=== PATIENT | female | born 1970 | race African-American/Black ===

== ENCOUNTER 2018-02-09 06:26 | Inpatient (IN) | payer OTHER ==
[2018-02-09] MEDS ORDERED: LIDOCAINE 2% (SDV) 5 ML INJ (07:00)
[2018-02-09] MEDS ORDERED: CEFAZOLIN 2 GM/50 ML (PMX) 50 ML IVPB (07:00)
[2018-02-09] MEDS: SOD CHLORIDE 0.9% 1,000 ML IV (07:56)
[2018-02-09] MEDS ORDERED: THROMBIN 5000 UNIT VIAL (09:05)
[2018-02-09] MEDS ORDERED: PROPOFOL 20 ML (09:23)
[2018-02-09] MEDS ORDERED: SUCCINYLCHOLINE CHLORIDE 100 MG/5 ML SYG IV (09:23)
[2018-02-09] MEDS ORDERED: MIDAZOLAM 1 MG/ML 2 ML INJ (09:23)
[2018-02-09] MEDS ORDERED: DEXAMETHASONE 4 MG/ML 1 ML INJ (09:31)
[2018-02-09] MEDS ORDERED: CEFAZOLIN 1 GM INJ (09:31)
[2018-02-09] MEDS ORDERED: FAMOTIDINE 20 MG INJ (09:31)
[2018-02-09] MEDS ORDERED: ONDANSETRON 4 MG INJ (09:31)
[2018-02-09] MEDS ORDERED: FENTAnyl 50 MCG/ML VIAL (10:13)
[2018-02-09] MEDS ORDERED: HYDROmorphONE 1 MG/5 ML IV SYRINGE IV ×3 (11:20→11:47)
[2018-02-09] MEDS: HYDROmorphONE 1 MG/5 ML IV SYRINGE IV ×5 (11:22→12:27)
[2018-02-09] MEDS ORDERED: ONDANSETRON 4 MG INJ IV (11:30)
[2018-02-09] MEDS ORDERED: hydrALAzine 20 MG INJ IV (11:30)
[2018-02-09] MEDS ORDERED: LABETALOL HCL 20MG INJ IV (11:30)
[2018-02-09] MEDS ORDERED: DIPHENHYDRAMINE 50 MG INJ IV (11:30)
[2018-02-09] MEDS ORDERED: OXYCODONE/ACETAMINOPHEN (5/325) TAB PO (13:30)
[2018-02-09 14:31] LABS: ADD MAN DIFF? NO
[2018-02-09 14:49] LABS: WHITE BLOOD COUNT 11.4 10^3/ul (4.8-10.8)
[2018-02-09 14:49] LABS: ALANINE AMINOTRANSFERASE 31 IU/L (13-69); ALBUMIN 3.9 g/dl (3.3-4.9); ALBUMIN/GLOBULIN RATIO 1.14; ALKALINE PHOSPHATASE 109 IU/L (42-121); ANION GAP 13 (8-16); ASPARTATE AMINO TRANSFERASE 27 IU/L (15-46); BASOPHILS % 0.3 % (0.0-2.0); BILIRUBIN,INDIRECT 0.1 mg/dl (0-1.1); BILIRUBIN,TOTAL 0.1 mg/dl (0.2-1.3); BLOOD UREA NITROGEN 7 mg/dl (7-20); CALCIUM 9.3 mg/dl (8.4-10.2); CARBON DIOXIDE 24 mmol/L (21-31); CHLORIDE 108 mmol/L (97-110); CREATININE 0.82 mg/dl (0.44-1.00); GLUCOSE 127 mg/dl (70-220); HEMOGLOBIN 14.1 g/dl (12.0-16.0); LYMPHOCYTES # 0.6 10^3/ul (0.8-2.9); LYMPHOCYTES % 5.5 % (15.0-51.0); MEAN CORPUSCULAR HEMOGLOBIN 29.7 pg (29.0-33.0); MEAN CORPUSCULAR HGB CONC 33.6 g/dl (32.0-37.0); MEAN CORPUSCULAR VOLUME 88.4 fl (82.0-101.0); MEAN PLATELET VOLUME 11.7 fl (7.4-10.4); MONOCYTE # 0.1 10^3/ul (0.3-0.9); MONOCYTES % 1.1 % (0.0-11.0); NEUTROPHIL # 10.6 10^3/ul (1.6-7.5); NEUTROPHILS % 92.7 % (39.0-77.0); PLATELET COUNT 217 10^3/UL (140-415); POTASSIUM 4.3 mmol/L (3.5-5.1); RED BLOOD COUNT 4.75 10^6/ul (4.20-5.40); RED CELL DISTRIBUTION WIDTH 14.6 % (11.5-14.5); SODIUM 141 mmol/L (135-144); TOTAL PROTEIN 7.3 g/dl (6.1-8.1)
[2018-02-09 14:52] LABS: INR 0.94; PROTIME 12.7 Sec (11.9-14.9)
[2018-02-09 14:53] LABS: PARTIAL THROMBOPLASTIN TIME 27.3 Sec (25.0-35.0)
[2018-02-09] MEDS: D5W-0.45 NACL + KCL 20 MEQ 1,000 ML IV ×2 (15:56→19:49)
[2018-02-09] MEDS: OXYCODONE/ACETAMINOPHEN (5/325) TAB PO (15:56)
[2018-02-09] MEDS: ONDANSETRON 4 MG INJ IV ×2 (15:56→21:00)
[2018-02-09] MEDS: ACETAMINOPHEN 1000MG/100ML IV 100 ML IVPB (19:49)
[2018-02-09] MEDS: HYDROmorphONE 0.5 MG/0.5 ML SYG IV (21:01)
[2018-02-10] MEDS: HYDROmorphONE 0.5 MG/0.5 ML SYG IV ×6 (01:25→22:14)
[2018-02-10] MEDS: METOCLOPRAMIDE 10 MG INJ IV ×4 (01:25→22:13)
[2018-02-10 01:31] LABS: CALCIUM 9.5 mg/dl (8.4-10.2)
[2018-02-10] MEDS: D5W-0.45 NACL + KCL 20 MEQ 1,000 ML IV ×4 (03:02→23:59)
[2018-02-10 05:55] LABS: CALCIUM 9.4 mg/dl (8.4-10.2)
[2018-02-11] MEDS: HYDROmorphONE 0.5 MG/0.5 ML SYG IV ×5 (03:46→21:47)
[2018-02-11] MEDS: METOCLOPRAMIDE 10 MG INJ IV ×3 (05:05→21:47)
[2018-02-11 05:09] LABS: ADD MAN DIFF? NO
[2018-02-11 05:23] LABS: BASOPHILS % 0.4 % (0.0-2.0); EOSINOPHILS # 0.1 10^3/ul (0.0-0.5); EOSINOPHILS % 1.5 % (0.0-7.0); HEMATOCRIT 37.9 % (37.0-47.0); LYMPHOCYTES # 1.6 10^3/ul (0.8-2.9); LYMPHOCYTES % 21.2 % (15.0-51.0); MEAN CORPUSCULAR HEMOGLOBIN 29.7 pg (29.0-33.0); MEAN CORPUSCULAR HGB CONC 34.3 g/dl (32.0-37.0); MEAN CORPUSCULAR VOLUME 86.7 fl (82.0-101.0); MEAN PLATELET VOLUME 10.3 fl (7.4-10.4); MONOCYTE # 0.6 10^3/ul (0.3-0.9); MONOCYTES % 7.7 % (0.0-11.0); NEUTROPHIL # 5.1 10^3/ul (1.6-7.5); NEUTROPHILS % 68.9 % (39.0-77.0); PLATELET COUNT 256 10^3/UL (140-415); RED BLOOD COUNT 4.37 10^6/ul (4.20-5.40); RED CELL DISTRIBUTION WIDTH 14.6 % (11.5-14.5)
[2018-02-11 05:23] LABS: WHITE BLOOD COUNT 7.4 10^3/ul (4.8-10.8)
[2018-02-11 05:46] LABS: ANION GAP 12 (8-16); BLOOD UREA NITROGEN 11 mg/dl (7-20); CALCIUM 8.6 mg/dl (8.4-10.2); CARBON DIOXIDE 26 mmol/L (21-31); CHLORIDE 107 mmol/L (97-110); CREATININE 0.86 mg/dl (0.44-1.00); GLUCOSE 116 mg/dl (70-220); POTASSIUM 4.2 mmol/L (3.5-5.1); SODIUM 141 mmol/L (135-144)
[2018-02-11] MEDS: D5W-0.45 NACL + KCL 20 MEQ 1,000 ML IV ×2 (08:31→16:57)
[2018-02-11] MEDS: ALBUTEROL/IPRATROPIUM (NEB) 3 ML AMP HHN (20:17)
[2018-02-12] MEDS: HYDROmorphONE 0.5 MG/0.5 ML SYG IV ×4 (02:38→15:38)
[2018-02-12] MEDS: METOCLOPRAMIDE 10 MG INJ IV (07:05)
[2018-02-12] MEDS: ALBUTEROL/IPRATROPIUM (NEB) 3 ML AMP HHN ×3 (08:11→19:58)
[2018-02-12 08:58] LABS: ADD MAN DIFF? NO
[2018-02-12 09:08] LABS: WHITE BLOOD COUNT 4.9 10^3/ul (4.8-10.8)
[2018-02-12 09:08] LABS: BASOPHILS % 0.6 % (0.0-2.0); EOSINOPHILS # 0.2 10^3/ul (0.0-0.5); EOSINOPHILS % 3.2 % (0.0-7.0); HEMOGLOBIN 13.7 g/dl (12.0-16.0); LYMPHOCYTES # 1.7 10^3/ul (0.8-2.9); LYMPHOCYTES % 34.9 % (15.0-51.0); MEAN CORPUSCULAR HEMOGLOBIN 29.5 pg (29.0-33.0); MEAN CORPUSCULAR HGB CONC 34.3 g/dl (32.0-37.0); MEAN PLATELET VOLUME 10.4 fl (7.4-10.4); MONOCYTE # 0.5 10^3/ul (0.3-0.9); MONOCYTES % 9.3 % (0.0-11.0); NEUTROPHIL # 2.6 10^3/ul (1.6-7.5); NEUTROPHILS % 51.8 % (39.0-77.0); PLATELET COUNT 272 10^3/UL (140-415); RED BLOOD COUNT 4.65 10^6/ul (4.20-5.40); RED CELL DISTRIBUTION WIDTH 14.2 % (11.5-14.5)
[2018-02-12 09:39] LABS: ANION GAP 16 (8-16); BLOOD UREA NITROGEN 9 mg/dl (7-20); CALCIUM 8.6 mg/dl (8.4-10.2); CARBON DIOXIDE 27 mmol/L (21-31); CHLORIDE 102 mmol/L (97-110); CREATININE 0.79 mg/dl (0.44-1.00); GLUCOSE 130 mg/dl (70-220); POTASSIUM 3.8 mmol/L (3.5-5.1); SODIUM 141 mmol/L (135-144)
[2018-02-12] MEDS: D5W-0.45 NACL + KCL 20 MEQ 1,000 ML IV (09:48)
[2018-02-12] MEDS: ONDANSETRON 4 MG INJ IV (13:05)
[2018-02-12] MEDS: HYDROmorphONE 2 MG TAB PO (20:26)
[2018-02-13] MEDS: HYDROmorphONE 2 MG TAB PO ×4 (00:32→13:50)
[2018-02-13 05:51] LABS: ADD MAN DIFF? NO; BASOPHILS % 0.5 % (0.0-2.0); EOSINOPHILS # 0.3 10^3/ul (0.0-0.5); EOSINOPHILS % 4.9 % (0.0-7.0); HEMATOCRIT 39.5 % (37.0-47.0); HEMOGLOBIN 13.5 g/dl (12.0-16.0); LYMPHOCYTES # 2.2 10^3/ul (0.8-2.9); LYMPHOCYTES % 36.9 % (15.0-51.0); MEAN CORPUSCULAR HEMOGLOBIN 28.8 pg (29.0-33.0); MEAN CORPUSCULAR HGB CONC 34.2 g/dl (32.0-37.0); MEAN CORPUSCULAR VOLUME 84.4 fl (82.0-101.0); MONOCYTE # 0.8 10^3/ul (0.3-0.9); MONOCYTES % 13.6 % (0.0-11.0); NEUTROPHIL # 2.6 10^3/ul (1.6-7.5); NEUTROPHILS % 43.9 % (39.0-77.0); PLATELET COUNT 274 10^3/UL (140-415); RED BLOOD COUNT 4.68 10^6/ul (4.20-5.40); RED CELL DISTRIBUTION WIDTH 14.4 % (11.5-14.5)
[2018-02-13 05:51] LABS: WHITE BLOOD COUNT 5.9 10^3/ul (4.8-10.8)
[2018-02-13 06:13] LABS: ANION GAP 13 (8-16); BLOOD UREA NITROGEN 11 mg/dl (7-20); CALCIUM 8.8 mg/dl (8.4-10.2); CARBON DIOXIDE 29 mmol/L (21-31); CHLORIDE 101 mmol/L (97-110); GLUCOSE 104 mg/dl (70-220); POTASSIUM 4.1 mmol/L (3.5-5.1); SODIUM 139 mmol/L (135-144)
[2018-02-13] MEDS: ALBUTEROL/IPRATROPIUM (NEB) 3 ML AMP HHN ×2 (07:51→14:03)
[2018-02-13] MEDS: IBUPROFEN 600 MG TAB PO (09:27)
== END 2018-02-13 18:05 | disposition home or self-care (01) | DRG 627 ==
LOC: REC 06:26 → PP2 21:56 → MS3 22:27 → PP2 22:54
PROC: 0GBN0ZZ Excision of Right Inferior Parathyroid Gland, Open Approach (ICD-10-PCS; principal; 2018-02-09 09:00)
PROC: 0GTH0ZZ Resection of Right Thyroid Gland Lobe, Open Approach (ICD-10-PCS; 2018-02-09 09:00)
DX: E21.3 Hyperparathyroidism, unspecified (principal); E04.1 Nontoxic single thyroid nodule; D35.1 Benign neoplasm of parathyroid gland; L80 Vitiligo; R13.10 Dysphagia, unspecified; R06.02 Shortness of breath
CPT/HCPCS: 71045; 80048; 80053; 82310; 85025; 85610; 85730; 86850; 86900; 86901; 86920; 88307; 88331; 93005; 94640; 94664